=== PATIENT | female | born 1945 | race Two or more races ===

== ENCOUNTER 2021-07-05 08:00 | Day surgery (SDC) | payer OTHER ==
[~2021-07-05 08:00] MED LIST: AMLODIP PO; BUSPIRONE HCL15 MG PO; COZAAR50 MG PO; ELIQUIS5 MG PO; GLIMEPIRIDE4 MG PO; GLUMETZA500 MG PO; HORIZANT300 MG PO; LOSART PO; NASAL MIST126 ML; SYNTH
== END 2021-07-05 19:00 | disposition home or self-care (01) ==
LOC: CIR.AMB 08:00
PROVIDERS: ATTEND Obstetrics & Gynecology
DX: N84.0 Polyp of corpus uteri (principal); Z88.0 Allergy status to penicillin; I10 Essential (primary) hypertension; Z86.16 Personal history of COVID-19; E03.9 Hypothyroidism, unspecified; Z86.73 Personal history of transient ischemic attack (TIA), and cerebral infarction without residual deficits; G62.9 Polyneuropathy, unspecified; Z20.822 Contact with and (suspected) exposure to COVID-19